=== PATIENT | female | born 1935 | race Caucasian/White ===

== ENCOUNTER 2016-10-14 12:19 | Day surgery (SDC) | payer MEDICARE ==
[2016-10-14] VITALS (8 sets, daily range): BP systolic 160–187; BP diastolic 52–65; PULSE 71–88; RESP 6–16; O2SAT 96–100
[~2016-10-14] VITALS: Ht 160 cm; Wt 74.7 kg
[~2016-10-14 12:19] MED LIST: ACET-2605 PO; ALPR0.254 PO; CHOL200047 PO; CLOB15CR3 TOP; CRAN200C2 PO; HYG25 PO; LOSA50TA37 PO; METO25TA99 PO; MULT-1018 PO; POLY17PO6 PO; POTA20TA16 PO; PRAV20TA2 PO; RANI150T11 PO; TRAS440V IV; UBID50CA25 PO
[2016-10-14] MEDS ORDERED: Ondansetron 2 mg/mL 2 mL Inj ONE (12:20)
[2016-10-14] MEDS ORDERED: EPHEDrine/NS 5 mg/mL 5 mL Syringe ONE (12:20)
[2016-10-14] MEDS ORDERED: Dexamethasone 4 mg/mL Inj ONE (12:20)
[2016-10-14] MEDS ORDERED: Succinylcholine Chloride 20 mg/mL 5 mL Inj ONE (12:20)
[2016-10-14] MEDS ORDERED: Ketamine 10 mg/mL 20 mL Inj ONE (12:20)
[2016-10-14] MEDS ORDERED: Propofol 10,000 mCg/mL 20 mL Inj ONE (12:20)
[2016-10-14] MEDS ORDERED: fentaNYL-PF 50 mCg/mL 2 mL Inj ONE (12:20)
[2016-10-14] MEDS: Lactated Ringer's 1,000 ML IV SCH ×2 (12:47→15:04)
[2016-10-14] MEDS ORDERED: ASPI-973 PO (13:11)
[2016-10-14] MEDS ORDERED: Bupivacaine-MPF 0.5% W/EPI 30 mL Inj INFILTRATE ONE (15:04)
[2016-10-14] MEDS: CeFAZolin Inj 2 GM in IV Premix 1 EACH IV ONE ×2 (15:14→15:25)
--- NOTE | 2016-10-14 16:59 | PCM.DISURG ---
Surgical Discharge Instruction Date of Service October 14, 2016 Dates of Hospitalization Date of Hospital Admission Providers Admitting Physician: Primary Care Physician: Teena Villeda Attending Physician: Haris West MD Discharge Diagnosis Discharge Diagnosis Deformity after mastectomy Diet Discharge Diet: No restrictions Activity Discharge Activity-General: No restrictions Dressing and Incisional Care Dressing Instructions: Dermabond will peel off gradually Follow Up Plan Follow Up Plan With Dr. West in 2-3 weeks Call your provider for: Fever, Discharge @ incision, pus discharge Haris West MD October 14, 2016 16:59
[2016-10-14] MEDS ORDERED: HYDROcodone-APAP 5-325 mg Tablet PO PRN (17:00)
--- NOTE | 2016-10-14 17:05 | PCM.SURGOP ---
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 She continues to receive adjuvant Herceptin. Initially, she healed well with good cosmetic outcome, but progressively, she had excess redundant bilateral chest wall skin and soft tissue which was bothersome. After discussion of risks and benefits, she agreed to proceed with excision of bilateral chest wall skin and soft tissue with closure and revision of her mastectomy scars. Findings: On the right side, excised tissue measured 27 x 6 cm. On the left side excised tissue measured 25 x 6 cm. Procedure Details After smooth induction of general endotracheal anesthesia, she was placed initially in the right semi-decubitus position, and was prepped and draped in wide sterile fashion on the left side. A procedural pause was performed according to the SCOAP checklist, and all were found to be in agreement. An elliptical skin incision was made, oriented transversely, excising her prior mastectomy scar. Dimensions of dissection were 25 cm transverse by 6 cm craniocaudal. Dissection was carried down through the subcutaneous tissue with electrocautery to the chest wall. Skin and subcutaneous tissue was then elevated off the underlying chest wall, down to pectoralis and latissimus dorsi muscles. The excised tissue was oriented with suture, and sent for permanent pathology. The wound was then closed in layers with interrupted deep dermal 3- 0 Vicryl suture, and running 4-0 Vicryl subcuticular stitches. Dermabond was applied to the skin and allowed to dry. She was then repositioned into the left semi-decubitus position, and the right chest wall was prepped and draped in sterile fashion. An elliptical skin incision was made, encompassing her prior mastectomy scar. Dimensions of dissection were 27 cm transverse by 6 cm craniocaudal. Dissection was carried down through the subcutaneous tissue to the chest wall. Medially, there was a perforating vessel which was controlled with a Hemoclip. The excised skin and subcutaneous tissue was elevated off the underlying pectoralis and latissimus dorsi muscles. It was excised, oriented with suture, and sent for permanent pathology. The skin incision was closed in layers with interrupted deep dermal 3-0 Vicryl suture, and running 4-0 Vicryl subcuticular stitches. Dermabond was applied to the skin as a dressing. At the end of the case all needle and sponge counts were correct 2. The patient was awakened from anesthesia without difficulty, and taken to the recovery room in satisfactory condition, having tolerated the procedure well. Complications There were no periprocedural complications identified. Surgical Specimen Removed: Yes Specimen sent to Pathology: Yes Surgical Specimen description: Left chest wall tissue. Right chest wall tissue. Anesthetic Plan: GA Grafts, Implants: None Output, Estimated Blood Loss: 30 Blood Administration during huff: No Drains: None Catheters: None copies to: Teena Villeda; David Kaur MD, Joshua D MD October 14, 2016 17:05
[2016-10-14] MEDS ORDERED: Lactated Ringer's 1,000 ML IV SCH (17:13)
[2016-10-14] MEDS ORDERED: Lactated Ringer's 500 ML IV PRN (17:13)
--- NOTE | 2016-10-14 17:14 | PCM.ANEP1 ---
Post Anesthesia Phase 1 PACU Phase 1 Assessment Date of Service: October 14, 2016 Vital Signs Vital Signs Date Time Temp Pulse Resp B/P Pulse Ox O2 Delivery O2 Flow Rate FiO2 10/14/16 12:52 36.1 71 16 187/65 99 Room Air Anesthetic Administered: GA Level of Alertness: Awake, talking Pain: No Nausea or Vomiting: No Cardiovascular Function and Hy: Yes Oxygen Delivery: Simple Mask Lungs: Clear to Auscultation Complications: No Follow up Care: No Reed Orourke MD October 14, 2016 17:14
[2016-10-14] MEDS ORDERED: Dexamethasone 4 mg/mL Inj IVPUSH PRN (17:15)
[2016-10-14] MEDS ORDERED: HYDROmorphone 1 mg/mL Inj IVPUSH PRN (17:15)
[2016-10-14] MEDS ORDERED: Phenylephrine 10,000 mCg/mL Inj IVPUSH PRN (17:15)
[2016-10-14] MEDS ORDERED: MetoCLOpramide 5 mg/mL 2 mL Inj IVPUSH PRN (17:15)
[2016-10-14] MEDS ORDERED: Ondansetron 2 mg/mL 2 mL Inj IVPUSH PRN (17:15)
[2016-10-14] MEDS ORDERED: EPHEDrine Sulfate 50 mg/mL Inj IVPUSH PRN (17:15)
[2016-10-14] MEDS ORDERED: fentaNYL-PF 50 mCg/mL 2 mL Inj IVPUSH PRN (17:15)
--- NOTE | 2016-10-15 09:41 | PCM.HPANE ---
Patient Data Date of Service: October 15, 2016 Surgeon Admitting Provider: Attending Provider:Haris West MD Primary Care Physician:Teena Villeda Other Provider:Román Sellers Anesthesia Reason for Visit Bilateral Chest Wall Deformity After Mastectomy Ht/WT & BMI Height (Feet): 5 Height (Inches): 3 Weight (Kilograms): 74.7 Body Mass Index 29.00 Allergies Coded Allergies: Adhesives (Verified Allergy, Severe, 10/14/16) ciprofloxacin (Verified Allergy, Mild, nausea, 10/14/16) Sulfa (Sulfonamide Antibiotics) (Verified Allergy, Unknown, 10/14/16) Uncoded Allergies: CECLOR (Allergy, Unknown, 04/28/11) Past Anesthesia History Anesthesia History: Denies:: Anesthesia Reactions Diabetes History Hx Diabetes?: No MRSA MRSA: No Medications Blood Thinner: Aspirin Hypertension Medication: Yes Home Meds Incl Beta Jacquelin: Yes Date Beta Jacquelin Taken: October 13, 2016 Time Beta Jacquelin Taken: 2100 Active Scripts Metoprolol Succinate ER 25 Mg Tab.er.24h25 Mg PO DAILY #30 TABLET Ref 0 Prov:Shira Valle MD 05/30/16 Reported Medications Aspirin 81 Mg Zruqoh45 Mg PO DAILY Ref 0 10/14/16 Trastuzumab (Herceptin)440 Mg Kqsy722 Mg IV WEEKLY 05/23/16 Ranitidine (Zantac)150 Mg Bbbfsn827 Mg PO DAILY 05/23/16 Potassium Chloride 20 Meq Tab.er.prt20 Meq PO HS #30 TABLET Ref 0 TAKE WITH FOOD 05/02/16 Chlorthalidone 25 Mg Cogdat73.5 Mg PO DAILY #30 TABLET 05/02/16 Clobetasol Propionate/Emoll (Clobetasol Emollient 0.05% Crm)15 Gm Cream..g.1 Appl TOP BID 03/07/16 Ubidecarenone (Co Q-10)50 Mg Pohjwpz98 Mg PO DAILY 01/30/16 Multivitamin (Multi Vitamin Daily)1 Each Tablet1 Each PO DAILY 30 Days Ref 0 01/30/16 Alprazolam 0.25 Mg Tablet0.25 Mg PO PRN PRN For Anxiety Ref 0 01/15/16 Cholecalciferol (Vitamin D3) (Vitamin D3)2,000 Unit Capsule2,000 Unit PO DAILY 01/15/16 Cranberry Extract (Cranberry)200 Mg Nmhksmf151 Mg PO DAILY 01/15/16 Losartan Potassium 50 Mg Ooucuw30 Mg PO BID 01/15/15 Pravastatin 20 Mg Hotsbq83 Mg PO BID Ref 0 01/15/15 Discontinued Reported Medications Acetaminophen/Diphenhydramine (Tylenol Pm Ex-Strength Caplet)500 Mg-25 Mg Tablet1 Each PO HS 01/15/16 Discontinued Scripts Polyethylene Glycol 3350 (Miralax)17 Gm Powd.pack17 Gm PO DAILY PRN For Constipation #1 BOTTLE Prov:Haris West MD 02/06/16 History History of ENT Problems?: No HEENT History: Positive for:: Cataracts (bilateral cataract surgeries) Sinus Problem (seasonal) Denies:: Dysphagia Hearing Problem Denture Type: None Teeth Condition: Within Normal Limits Hx of Heart Problems?: Yes Cardiovascular History: Positive for:: Hypertension Irregular Heartbeat (s/p ablation 2005 with no recurrence of tachycardia) Denies:: Atrial Fibrillation Cardiac Surgery (Ablation in 2005 roughly in [place],stent left groin) Chest Pain Congestive Heart Failure Edema Heart Murmur Pacemaker Rheumatic Fever Thrombophlebitis Hx of Respiratory Problem?: No Respiratory History: Positive for:: Pulmonary Embolism (after lami) Denies:: Asthma COPD Chest Surgery Dyspnea Emphysema Hemoptysis Oxygen Administration Pneumonia Tuberculosis Use of C-PAP Machine Hx Neurologic Problems?: No Neurological History: Denies:: Alzheimer's Disease CVA Dementia Dizziness Headaches Parkinson's Disease Seizures Hx of GI Problems?: No Hx of Problems?: No Genitourinary History: Denies:: HX of Hemodialysis Kidney Stones Urinary Tract Infection HX of Peritoneal Dialysis: No Female Hx: Positive for:: Problems with Breasts? (chest wall deformity post mastectomy current admission problem) Denies:: Currently Endometriosis Pelvic Inflammatory Skin History: Denies:: History Skin Disorders? (dry skin) Pressure Ulcers Hx Musculoskeletal Problems?: Yes Musculoskeletal History: Positive for:: Back Injury (hx of lumbar lami) Joint Replacement Musculoskeletal Trauma Hx of Psycho/Social Problems?: No Psycho Social History: Positive for:: Anxiety Denies:: Bipolar Disorder Hx Depression Hx Surgeries?: Yes (lami, AAA, appe, hyst, bilateral mastectomies) Hx Any Other Health Problems?: Yes Other History: Positive for:: Cancer (left breast) Hospitalization Denies:: Endocrine Disease Thyroid Disease History Blood Transfusions: Positive for:: Blood Transfusions (for back surgery) Denies:: Blood Transfuse Reaction Hx Diabetes: No Hx Alcohol Use: NoHx Substance Use: No Smoking Status: Former Smoker Have You Smoked inLast 12 mo: No Stop/Bang S-Snoring: Do You Snore Loudly: No T-Tired: feel tired, fatigued: No O-Obsered: Observed not breath: No P-Blood Pressure: treated: Yes B- Body Mass Index > 35 kg/m2: No A- Age over 50: Yes N- Neck Large Circumference: No G- Gender Male: No MARIELENA Total Score: 2 Risk Assessment Category Category 1A: Patient has history of documented sleep apnea, and HAS NOT received any narcotic, sedative or anesthesia administration during this stay. Category 1B: Patient has history of documented sleep apnea, and HAS received any narcotic , sedative or anesthesia administration during this stay Category 2: Patient has SUSPECTED Obstructive Sleep Apnea, and HAS received any narcotic , sedative or anesthesia administration during this stay. Category 3: Patient has SUSPECTED Obstructive Sleep Apnea and HAS NOT received narcotic, sedative or anesthesia administration during this stay. Category 4: Outpatient in Procedural Areas with known sleep apnea or who screen positive for High Risk via the STOP/BANG questionnaire. Exam Exam General Appearance: Oriented X3 HEENT/AIRWAY: MP 2 Lungs: Clear to Auscultation Heart: Exam Unremarkable Meds/Labs/Diagnostics Admission Meds Current Medications Bupivacaine HCl/ Epinephrine Bitart (Sensorcaine-MPF 0.5% W/EPI Inj) 30 ml STK- MED ONCE INFILTRATE Last administered on 10/14/16t 15:04; Start 10/14/16 at 15:04 ; Stop 10/14/16 at 15:15; Status DC Labs Test 10/14/16 14:30 Potassium Level 3.7mEq/L (3.5-5.2) Plan Impression Patient chart reviewed, patient interviewed and anesthestic plan with risks, benefits, and alternatives discussed, and informed consent obtained. NPO per Anesth. Guidelines: Yes ASA Physical Status: ASA2 Mod Systemic Disease Bene/Risks/Altern/Consents: Yes HP Complete Prior to Induction: Yes Reed Orourke MD October 15, 2016 09:41
--- NOTE | 2016-10-16 11:12 | PATH ---
SURGICAL PATHOLOGY Attending Physician:Clive Sauceda CASE STATUS: Signed Out PATIENT NAME: YOLANDA CHACKO PID: [id number] : 1935 DATE COLLECTED:10/14/2016 00:00 SPECIMEN: 1: Soft Tissue Tumor, Extensive Resection 2: Soft Tissue Tumor, Extensive Resection CLINICAL HISTORY: DEFORMITY POST MASTECTOMY HISTORY OF BREAST CANCER 1). LEFT CHEST WALL TISSUE 2). RIGHT CHEST WALL TISSUE FINAL DIAGNOSIS: 1.LEFT CHEST WALL TISSUE: SKIN AND SUBCUTANEOUS TISSUE WITH SCAR AND SEBORRHEIC KERATOSIS. No atypia or malignancy. 2.RIGHT CHEST WALL TISSUE: SKIN AND SUBCUTANEOUS TISSUE WITH SCAR AND SUTURE GRANULOMA CONSISTENT WITH PREVIOUS SURGERY. No atypia or malignancy. ICD10 code L90.5L82.1 GROSS DESCRIPTION: The specimens are received in formalin, labeled with the patient's name, and sublabeled as the following: (1) left chest wall tissue, SS-superior, LS-lateral; (2) right chest wall tissue. (1) The specimen consists of a piece of skin with subcutaneous tissue (2.6 cm AP, 5.8 cm SI, 22.2 cm ML). The specimen is oriented with 2 black sutures (short-superior, long-lateral). The skin is russo-white and contains a linear scar (length-17.7 cm) and multiple brown papules (0.3 x 0.2 x 0.1 cm-2.2 x 0.6 x 0.3 cm). The subcutaneous tissue is fatty. No nodules or masses are identified. Ink code: yellow-posterior; black-superior; orange-inferior; green-medial; blue-lateral. Section code: (1A-1D) skin with subcutaneous tissue, serially sectioned, field marketing representative. (2) The specimen consists of a piece of skin with subcutaneous tissue (2.5 cm AP, 6.7 cm SI, 28.4 cm ML). The specimen is oriented with 2 black sutures (short-superior, long-lateral). The skin is russo-white and contains a linear scar (length-18.0 cm) and multiple brown papules (0.2 x 0.1 x 0.1 cm-0.4 x 0.3 x 0.1 cm). The subcutaneous tissue is fatty. No nodules or masses are identified. Ink code: purple-anterior; yellow-posterior; black-superior; orange-inferior; green-medial; blue-lateral. Section code: (2A-2D) skin with subcutaneous tissue, serially sectioned, field marketing representative. 10/15/16 MICRO DESCRIPTION: See diagnosis. ICD-9 CODES: CPT CODES: 1: 83690 2: 19403 Electronically Signed Out Anjana Cantu MD [facility] [address], [place] [address] Technical component performed at [facility], [facility] [address], [address]
== END 2016-10-14 23:59 | disposition home or self-care (01) ==
LOC: SAS 12:19
PROVIDERS: ATTEND Student in an Organized Health Care Education/Training Program
DX: N65.0 Deformity of reconstructed breast (principal); I10 Essential (primary) hypertension; I25.10 Atherosclerotic heart disease of native coronary artery without angina pectoris; E78.5 Hyperlipidemia, unspecified; I48.91 Unspecified atrial fibrillation; K21.9 Gastro-esophageal reflux disease without esophagitis; F41.9 Anxiety disorder, unspecified; I73.9 Peripheral vascular disease, unspecified; M19.90 Unspecified osteoarthritis, unspecified site; Z85.3 Personal history of malignant neoplasm of breast; Z17.0 Estrogen receptor positive status [ER+]; Z86.711 Personal history of pulmonary embolism; Z87.891 Personal history of nicotine dependence; Z79.82 Long term (current) use of aspirin; Z90.710 Acquired absence of both cervix and uterus
CPT/HCPCS: 11406; 36415; 84132; J0330; J0690; J1100; J2405; J3010; J7120